=== PATIENT | male | born 1985 ===

== ENCOUNTER 2020-11-27 12:41 | Emergency (ER) | payer BC ==
[~2020-11-27] VITALS: Ht 190.5 cm; Wt 142.9 kg
[~2020-11-27 12:41] MED LIST: HYDACE5 PO
[2020-11-27] MEDS ORDERED: ALBU90OI INH (13:00)
== END 2020-11-27 13:02 | disposition home or self-care (01) ==
LOC: ER 12:41
DX: U07.1 COVID-19 (principal)
CPT/HCPCS: 99283

== ENCOUNTER 2020-11-30 01:39 | Emergency (ER) | payer BC ==
[~2020-11-30] VITALS: Ht 190.5 cm; Wt 142.9 kg
[~2020-11-30 01:39] MED LIST changes: +ALBU90OI INH
[2020-11-30] MEDS ORDERED: DECADRON6 MG PO (03:34)
== END 2020-11-30 03:57 | disposition home or self-care (01) ==
LOC: ER 01:39
DX: U07.1 COVID-19 (principal)
CPT/HCPCS: 71045; 93005; 93010; 99283-25